=== PATIENT | male | born 1940 | race Caucasian/White ===

== ENCOUNTER 2021-04-17 21:04 | Observation (INO) ==
[2021-04-18] MEDS ORDERED: *HR* HYDROmorphone (PF) 1 MG/ML SYRINGE IVP ONE (00:53)
[2021-04-18 01:52] LABS: Basophils # 0.1 K/mcL (0.0-0.2); Basophils % 0.6 %; Eosinophils # 0.1 K/mcL (0.0-0.6); Eosinophils % 0.6 %; Hematocrit 34.4 % (37.5-50.1); Hemoglobin 10.9 g/dL (12.9-16.9); Immature Granulocytes % 2.6 % (0-4); Lymphocytes # 0.7 K/mcL (0.6-4.6); Lymphocytes % 4.1 %; Mean Corpuscular HGB Conc 31.7 g/dL (31.6-35.5); Mean Corpuscular Hemoglobin 29.4 pg (28.0-33.3); Mean Corpuscular Volume 92.7 fL (83.0-100.0); Mean Platelet Volume 12.3 fL (9.4-12.4); Monocytes # 0.9 K/mcL (0.0-1.3); Monocytes % 4.9 %; Neutrophils # 15.3 K/mcL (1.6-8.9); Platelet Count 253 K/mcL (140-400); Red Blood Count 3.71 M/mcL (4.19-5.50); Red Cell Distribution Width 16.6 % (11.5-14.5); Segmented Neutrophils % 87.2 %; White Blood Count 17.5 K/mcL (4.3-11.1)
[2021-04-18 02:12] LABS: Albumin 4.2 g/dL (3.5-5.7); Albumin/Globulin Ratio 1.9 (1.1-2.2); Bilirubin,Total 0.5 mg/dL (0.3-1.0); Calcium 9.4 mg/dL (8.6-10.3); Globulin 2.2 g/dL (2.4-3.5); Potassium 4.8 mEq/L (3.5-5.1); Total Protein 6.4 g/dL (6.4-8.9)
[2021-04-18] MEDS ORDERED: Naloxone 0.4 MG/ML INJ IVP PRN ×2 (05:35→05:50)
[2021-04-18] MEDS ORDERED: Melatonin 3 MG TABLET PO PRN (05:35)
[2021-04-18] MEDS ORDERED: Ondansetron 4 MG/2 ML VIAL IVP PRN (05:35)
[2021-04-18] MEDS ORDERED: D5% in Water 1,000 ML IVC PRN (05:47)
[2021-04-18] MEDS ORDERED: *HR* Dextrose 50 % in Water (Vial) 50 ML VIAL IVP PRN (05:47)
[2021-04-18] MEDS ORDERED: Dextrose Gel 15 GM/37.5 ML TUBE PO PRN ×2 (05:47)
[2021-04-18] MEDS ORDERED: Acetaminophen 325 MG TABLET PO PRN (05:50)
[2021-04-18] MEDS ORDERED: *HR* HYDROcodone/Acet 5/325 mg TABLET PO PRN (05:50)
[2021-04-18] MEDS ORDERED: *HR* Promethazine 25 MG/ML VIAL IM PRN (05:50)
[2021-04-18] MEDS: cefTRIAXone 1,000 MG in Water for inj. (sterile) 10 ML IVP SCH (06:45)
[2021-04-18] MEDS: 0.9 % Sodium Chloride 1,000 ML IVC SCH ×2 (06:45→21:45)
[2021-04-18] MEDS ORDERED: Insulin LISPRO 300 UNITS/3 ML VIAL SUBQ SCH ×3 (07:30→21:00)
[2021-04-18 08:30] LABS: Amorphous Sediment,Urine Few per hpf (None-Few); Bilirubin,Urine Negative (Negative); Blood,Urine Moderate (Negative); Clarity,Urine Clear (Clear); Color,Urine Colorless (Yellow); Glucose,Urine (UA) 30 mg/dL (Normal); Ketones,Urine Negative (Negative); Leukocyte Esterase,Urine Negative (Negative); Mucus,Urine Few per lpf (None-Few); Nitrite,Urine Negative (Negative); Protein,Urine 100 mg/dL (Neg-Trace); RBC,Urine 0-3 per hpf (0-3); Specific Gravity,Urine 1.015 (1.010-1.025); Urobilinogen,Urine Normal (Normal)
[2021-04-18] MEDS: Aspirin Enteric Coated 81 MG Tablet PO SCH (08:53)
[2021-04-18] MEDS: amLODIPine 5 MG TABLET PO SCH (13:58)
[2021-04-18] MEDS: Insulin LISPRO 300 UNITS/3 ML VIAL SUBQ SCH (16:02)
[2021-04-19 01:39] LABS: Hematocrit 30.5 % (37.5-50.1); Hemoglobin 9.9 g/dL (12.9-16.9); Mean Corpuscular HGB Conc 32.5 g/dL (31.6-35.5); Mean Corpuscular Hemoglobin 29.8 pg (28.0-33.3); Mean Corpuscular Volume 91.9 fL (83.0-100.0); Platelet Count 233 K/mcL (140-400); Red Blood Count 3.32 M/mcL (4.19-5.50); Red Cell Distribution Width 16.6 % (11.5-14.5); White Blood Count 9.5 K/mcL (4.3-11.1)
[2021-04-19 01:55] LABS: Calcium 9.1 mg/dL (8.6-10.3); Potassium 4.2 mEq/L (3.5-5.1)
[2021-04-19 02:08] LABS: Estimated Average Glucose 148 mg/dl; Hemoglobin A1C 6.8 %
[2021-04-19] MEDS ORDERED: Isovue-300 50ML VIAL ONE (07:09)
[2021-04-19] MEDS ORDERED: Ondansetron 4 MG/2 ML VIAL ONE (07:22)
[2021-04-19] MEDS ORDERED: Lidocaine -MPF 2% 2 ML VIAL ONE (07:22)
[2021-04-19] MEDS ORDERED: *HR* Propofol 200 MG/20 ML VIAL IVP ONE (07:22)
[2021-04-19] MEDS ORDERED: *HR* FentaNYL (PF) 100 MCG/2 ML VIAL ONE (07:22)
[2021-04-19] MEDS ORDERED: Ondansetron 4 MG/2 ML VIAL IVP PRN ×2 (07:31→09:26)
[2021-04-19] MEDS ORDERED: *HR* HYDROcodone/Acet 7.5/325 mg TABLET PO PRN (07:31)
[2021-04-19] MEDS ORDERED: CeFAZolin Syr 2,000MG/20 ML 2,000 MG/20 ML SYRINGE IVPB ONE (08:08)
[2021-04-19] MEDS ORDERED: Ringers Solution, Lactated 500 ML ONE (09:21)
[2021-04-19] MEDS ORDERED: Naloxone 0.4 MG/ML INJ IVP PRN (09:26)
[2021-04-19] MEDS ORDERED: D5% in Water 1,000 ML IVC PRN (09:26)
[2021-04-19] MEDS ORDERED: Dextrose Gel 15 GM/37.5 ML TUBE PO PRN ×2 (09:26)
[2021-04-19] MEDS ORDERED: *HR* Promethazine 25 MG/ML VIAL IM PRN (09:26)
[2021-04-19] MEDS ORDERED: *HR* Dextrose 50 % in Water (Vial) 50 ML VIAL IVP PRN (09:26)
[2021-04-19] MEDS ORDERED: Acetaminophen 325 MG TABLET PO PRN (09:26)
[2021-04-19] MEDS: Insulin LISPRO 300 UNITS/3 ML VIAL SUBQ SCH ×3 (12:10→19:26)
[2021-04-19] MEDS ORDERED: amLODIPine 5 MG TABLET PO SCH (12:34)
[2021-04-19] MEDS: *HR* HYDROcodone/Acet 5/325 mg TABLET PO PRN ×2 (15:31→23:52)
[2021-04-19] MEDS: Aspirin Enteric Coated 81 MG Tablet PO SCH (19:26)
[2021-04-19] MEDS: amLODIPine 5 MG TABLET PO SCH (19:30)
[2021-04-19] MEDS: cefTRIAXone 1,000 MG in Water for inj. (sterile) 10 ML IVP SCH (19:30)
[2021-04-19] MEDS: ANAGRELIDE HCL 1 MG PO SCH (21:43)
[2021-04-19] MEDS: Melatonin 3 MG TABLET PO PRN (23:47)
[2021-04-20 02:08] LABS: Basophils % 0.3 %; Eosinophils % 0.2 %; Hematocrit 31.1 % (37.5-50.1); Hemoglobin 10.2 g/dL (12.9-16.9); Immature Granulocytes % 2.7 % (0-4); Lymphocytes # 0.6 K/mcL (0.6-4.6); Lymphocytes % 4.9 %; Mean Corpuscular HGB Conc 32.8 g/dL (31.6-35.5); Mean Corpuscular Hemoglobin 30.1 pg (28.0-33.3); Mean Corpuscular Volume 91.7 fL (83.0-100.0); Mean Platelet Volume 12.8 fL (9.4-12.4); Monocytes # 0.7 K/mcL (0.0-1.3); Monocytes % 5.6 %; Neutrophils # 10.6 K/mcL (1.6-8.9); Platelet Count 259 K/mcL (140-400); Red Blood Count 3.39 M/mcL (4.19-5.50); Red Cell Distribution Width 16.4 % (11.5-14.5); Segmented Neutrophils % 86.3 %; White Blood Count 12.3 K/mcL (4.3-11.1)
[2021-04-20 02:31] LABS: Calcium 8.8 mg/dL (8.6-10.3); Potassium 4.5 mEq/L (3.5-5.1)
[2021-04-20] MEDS: Insulin LISPRO 300 UNITS/3 ML VIAL SUBQ SCH ×3 (08:54→17:17)
[2021-04-20] MEDS: Aspirin Enteric Coated 81 MG Tablet PO SCH (08:56)
[2021-04-20] MEDS: amLODIPine 5 MG TABLET PO SCH ×2 (08:57→20:34)
[2021-04-20] MEDS: cefTRIAXone 1,000 MG in Water for inj. (sterile) 10 ML IVP SCH (08:58)
[2021-04-20] MEDS: ANAGRELIDE HCL 1 MG PO SCH ×2 (08:58→20:34)
[2021-04-20] MEDS ORDERED: amLODIPine 5 MG TABLET PO SCH (09:00)
[2021-04-20] MEDS ORDERED: hydrALAZINE 10 MG TABLET PO ONE (10:13)
[2021-04-20] MEDS: *HR* HYDROcodone/Acet 5/325 mg TABLET PO PRN ×2 (14:32→23:02)
[2021-04-20] MEDS: Melatonin 3 MG TABLET PO PRN (23:02)
[2021-04-21 03:07] LABS: Basophils # 0.1 K/mcL (0.0-0.2); Basophils % 0.6 %; Eosinophils # 0.1 K/mcL (0.0-0.6); Eosinophils % 1.2 %; Hematocrit 31.3 % (37.5-50.1); Hemoglobin 9.9 g/dL (12.9-16.9); Immature Granulocytes % 2.1 % (0-4); Lymphocytes # 0.9 K/mcL (0.6-4.6); Lymphocytes % 7.5 %; Mean Corpuscular HGB Conc 31.6 g/dL (31.6-35.5); Mean Corpuscular Hemoglobin 29.8 pg (28.0-33.3); Mean Corpuscular Volume 94.3 fL (83.0-100.0); Mean Platelet Volume 12.3 fL (9.4-12.4); Monocytes # 0.8 K/mcL (0.0-1.3); Monocytes % 7.1 %; Neutrophils # 9.7 K/mcL (1.6-8.9); Platelet Count 312 K/mcL (140-400); Red Blood Count 3.32 M/mcL (4.19-5.50); Red Cell Distribution Width 16.9 % (11.5-14.5); Segmented Neutrophils % 81.5 %; White Blood Count 11.9 K/mcL (4.3-11.1)
[2021-04-21 03:18] LABS: Calcium 8.8 mg/dL (8.6-10.3); Potassium 4.1 mEq/L (3.5-5.1)
[2021-04-21] MEDS: ANAGRELIDE HCL 1 MG PO SCH (07:56)
[2021-04-21] MEDS: *HR* HYDROcodone/Acet 5/325 mg TABLET PO PRN (07:56)
[2021-04-21] MEDS: cefTRIAXone 1,000 MG in Water for inj. (sterile) 10 ML IVP SCH (07:57)
[2021-04-21] MEDS: Aspirin Enteric Coated 81 MG Tablet PO SCH (07:57)
[2021-04-21] MEDS: amLODIPine 5 MG TABLET PO SCH (07:57)
[2021-04-21 08:27] VITALS: BP 164/69; PULSE 61; TEMP 97.5; O2SAT 95
[2021-04-21] MEDS: Insulin LISPRO 300 UNITS/3 ML VIAL SUBQ SCH (08:35)
[2021-04-21] MEDS ORDERED: hydrALAZINE 10 MG TABLET PO SCH (09:16)
== END 2021-04-21 11:26 | disposition home or self-care (01) ==
LOC: 3ANU 21:04 → EMEROOARM 21:04 → SUATTDRO 04-18 04:24 → 3ANU 04-18 05:50
PROVIDERS: ADMIT Internal Medicine; ATTEND Internal Medicine